=== PATIENT | male | born 2000 | race African-American/Black ===

== ENCOUNTER 2025-04-12 23:38 | Emergency (ER) | payer OTHER ==
[~2025-04-12] VITALS: Ht 190.5 cm; Wt 101.3 kg
[2025-04-12 23:41] VITALS: BP 134/87; TEMP 98.3; O2SAT 100
[2025-04-13] MEDS ORDERED: CIPRHCOTIC OTIC (00:24)
== END 2025-04-13 00:45 | disposition home or self-care (01) ==
LOC: M ED 23:38
DX: H60.91 Unspecified otitis externa, right ear (principal)